=== PATIENT | female | born 1965 | race Caucasian/White ===

== ENCOUNTER 2018-03-13 06:32 | Day surgery (SDC) | END 2018-03-13 12:43 | disposition home or self-care (01) ==

== ENCOUNTER 2018-08-25 06:15 | Day surgery (SDC) | payer OTHER ==
[~2018-08-25] VITALS: Ht 162.6 cm; Wt 71.1 kg
[2018-08-25] VITALS (17 sets, daily range): BP systolic 96–121; BP diastolic 46–87; PULSE 62–84; RESP 11–22; Ht 162.6 cm; Wt 71.1 kg
--- NOTE | 2018-08-25 05:24 | PREOPHP ---
DATE OF ADMISSION: 08/25/2018 HISTORY OF PRESENT ILLNESS: This is a 53-year-old lady, 0. Her last normal menstrual period was at the age of 43. She was admitted as outpatient for D and C, hysteroscopy and suction curettag e. This patient desires to have estrogen replacement therapy. She is having a lot of hot flashes an d also has dyspareunia. Ultrasound showed endometrial thickening. Endometrial biopsy was attempted but the cervix was stenotic, so the biopsy could not be done, so she was admitted for the above proce dure. Procedure was explained to the patient and she understood everything totally. The risks, bene fits and alternatives were discussed with her as well. PAST PERSONAL HISTORY: No history of diabetes, TB, asthma. ALLERGIES: NO ALLERGIES. SOCIAL HISTORY: The patient does not smoke. She does not drink. MEDICATIONS: She does not take any drugs. GYNECOLOGIC HISTORY: She has menarche, patient does not remember and she states it is about 2 to 3 d ays' duration. She is 0. FAMILY HISTORY: Mother has high blood pressure. Brother has diabetes and has head cancer. REVIEW OF SYSTEMS: CARDIOVASCULAR: No chest pains. RESPIRATORY: No cough. GASTROINTESTINAL: No diarrhea, no vomiting. GENITOURINARY: No dysuria. PHYSICAL EXAMINATION: GENERAL: Reveals a conscious, coherent lady and in no acute distress. VITAL SIGNS: Her blood pressure 120/80, pulse rate 80 per minute, respirations 16 per minute. BREASTS, HEART AND LUNGS: Within normal limits. ABDOMEN: Soft. No organomegaly. PELVIC: Revealed a cervix to be firm, uterus of normal size and adnexa were negative for masses. RECTAL: Confirmed the pelvic findings. EXTREMITIES: No pedal edema. ADMITTING DIAGNOSES: 1. Endometrial thickening. 2. Rule out endometrial hyperplasia. 3. Menopause. The patient was planned to have the above procedure. The risks, benefits and alternatives were discu ssed with her as well. Dictated By: MARCE BRADFORD/DEBBIE Conf#: [id number] DID#: [id number]
[~2018-08-25 06:15] MED LIST: no home meds
[2018-08-25] MEDS ORDERED: ACETAMINOPHEN 500 MG TAB PO ONE (07:30)
[2018-08-25] MEDS ORDERED: LACTATED RINGER'S 1,000 ML IV SCH (07:45)
[2018-08-25] MEDS ORDERED: FENTAnyl 50 MCG/ML VIAL ONE (08:54)
[2018-08-25] MEDS ORDERED: PROPOFOL 40 ML ONE (08:54)
[2018-08-25] MEDS ORDERED: ONDANSETRON 4 MG INJ ONE (08:55)
[2018-08-25] MEDS ORDERED: FAMOTIDINE 20 MG INJ ONE (08:55)
[2018-08-25] MEDS ORDERED: METOCLOPRAMIDE 10 MG INJ ONE (09:33)
--- NOTE | 2018-08-25 09:38 | PREAC ---
Date/Time of Note Date/Time of Note DATE: 08/25/18 TIME: 09:36 Anesthesia Eval and Record Evaluation Time Pre-Procedure Interview DATE: 08/25/18 TIME: 09:36 Age 53 Sex female NPO: 8 hrs Preoperative diagnosis endometrial thickening Planned procedure D&C hysteroscopy and suction curettage Past Medical History Past Medical History: Includes GI: GERD (under control) Surgery & Anesthesia Issues No known issue Meds Anticoagulation: No Beta Rizwan within 24 hr: No Reason Beta Rizwan not given: Pt. not on B-Rizwan Discontinued Reported Medications [no home meds] No Conflict Check 03/13/18 Current Medications Lactated Ringer's 1,000 ml @ 0 mls/hr Q0M IV Last administered on 08/25/18at 07:51; Admin Dose 20 MLS/HR; Start 08/25/18 at 07:45 Meds reviewed: Yes Allergies Coded Allergies: No Known Drug Allergies (Verified Allergy, Unknown, 08/25/18) Allergies Reviewed: Yes Labs/Studies Labs Reviewed: Reviewed by anesthesiologist Blood Bank Test 08/25/18 07:40 Antibody Screen NEGATIVE Blood Type O POSITIVE test: Negative Pre-procedure Exam Last vitals Vital Signs Date Temp Pulse Resp B/P (MAP) Pulse Ox O2 O2 Flow FiO2 Time Delivery Rate 08/25/18 98.7 65 16 121/87 99 Room Air 08:14 (98) Airway: Adequate mouth opening, Adequate thyromental dist Mallampati: Mallampati II Teeth: Normal Lung: Normal Heart: Normal ASA Physical Status ASA physical status: 2 Emergency: None Planned Anesthetic General/MAC: LMA Pre-operative Attestations Prior to commencing anesthesia and surgery, the patient was re-evaluated, there was verification of: *The patient's identity *The results of appropriate recent lab work and preoperative vital signs *The above evaluation not changing prior to induction *Anesthetic plan, risk benefits, alternative and complications discussed with patient/family; questions answered; patient/family understands, accepts and wishes to proceed. SEVERO CALIXTO Aug 25, 2018 09:38
[2018-08-25] MEDS ORDERED: DESFLURANE 15 MIN ONE (09:44)
[2018-08-25] MEDS ORDERED: CEFAZOLIN 1 GM INJ ONE (09:44)
[2018-08-25] MEDS ORDERED: FENTAnyl 50 MCG/ML VIAL IV PRN ×2 (10:00)
[2018-08-25] MEDS ORDERED: ONDANSETRON 4 MG INJ IV PRN (10:00)
[2018-08-25] MEDS ORDERED: MEPERIDINE 25 MG INJ IV PRN (10:00)
[2018-08-25] MEDS ORDERED: OXYCODONE/ACETAMINOPHEN (5/325) TAB PO PRN ×2 (10:00)
[2018-08-25] MEDS ORDERED: LABETALOL HCL 20MG INJ IV PRN (10:00)
[2018-08-25] MEDS ORDERED: morphine 2 MG INJ IV PRN ×2 (10:00)
[2018-08-25] MEDS ORDERED: ALBUTEROL 0.083% (NEB) 2.5 MG/3 ML AMP HHN PRN (10:00)
[2018-08-25] MEDS ORDERED: HYDROmorphONE 1 MG/5 ML IV SYRINGE IV PRN ×3 (10:00)
[2018-08-25] MEDS ORDERED: DIPHENHYDRAMINE 50 MG INJ IV PRN (10:00)
--- NOTE | 2018-08-25 11:12 | SIPON ---
Date/Time of Note Date/Time of Note DATE: 08/25/18 TIME: 11:10 Operative Report Preoperative Diagnosis ENDOMETRIAL THICKENING MENOPAUSE R/O ENDOMETRIAL HYPERPLASIA Postoperative Diagnosis ENDOMETRIAL THICKENING MENOPAUSE R/O ENDOMETRIAL HYPERPLASIA PENDING PATHOLOGY Operation/Procedure Performed D&C HYSTEROSCOPY SUCTION CURETTAGE Surgeon see signature line assistant brand manager STUNT MAN Anesthesia: general Estimated blood loss: minimal Transfusion Required none Specimen ECC EMC SUCTION CURETTAGE Grafts/Implants none Complications none MARCE VILLEGAS MD Aug 25, 2018 11:12
[2018-08-25] MEDS ORDERED: ACETAMINOPHEN 325 MG TAB PO PRN (11:30)
--- NOTE | 2018-08-25 12:05 | PAC ---
Date/Time of Note Date/Time of Note DATE: 08/25/18 TIME: 12:03 Post-Anesthesia Notes Post-Anesthesia Note Last documented vital signs Vital Signs Date Temp Pulse Resp B/P (MAP) Pulse Ox O2 O2 Flow FiO2 Time Delivery Rate 08/25/18 66 17 112/69 95 Room Air 11:37 (83) 08/25/18 98.7 98.7 70 16 96/46 98 face 10:22 101 mask 8L 8 Activity: WNL Respiratory function: WNL Cardiovascular function: WNL Mental status: Baseline Pain reasonably controlled: Yes Hydration appropriate: Yes Nausea/Vomiting absent: Yes SEVERO CALIXTO Aug 25, 2018 12:05
--- NOTE | 2018-08-25 14:29 | OPR ---
DATE OF OPERATION: 08/25/2018 PREOPERATIVE DIAGNOSES: 1. Endometrial thickening. 2. Menopause. 3. Rule out endometrial hyperplasia. POSTOPERATIVE DIAGNOSES: 1. Endometrial thickening. 2. Menopause. 3. Rule out endometrial hyperplasia. 4. Pending pathology report. SURGEON: Marce Matamoros MD SERVICE CAR OPERATOR: Kaveh beck. ANESTHESIA: General. ANESTHESIOLOGIST: Mary Lou Gallardo NP OPERATION PERFORMED: Fractional dilatation and curettage, hysteroscopy and suction curettage. OPERATIVE TECHNIQUE: Under general anesthesia, the patient was prepped and draped in the usual [facility] on for vaginal surgery. Pelvic exam under anesthesia revealed the cervix to be firm, uterus of marce l size and adnexa were negative for masses. Then, the heavy weight vaginal retractor was put in plac e and the anterior lip of the cervix was grasped with an Allis clamp. Endocervical dilatation up to Hegar 6 was proceeded. Uterus was sounded to about 2-1/2 inches. The hysteroscope was inserted insi de the uterine cavity and connected with a light source. The uterus was distended with normal saline . There were no polyps nor fibroids seen. Endocervical curettage was done and small amount of tissu e was obtained. Endometrial curettage was done and small amount of tissue was obtained. Suction tip size 6 was inserted inside the uterine cavity and connected with the suction machine. Suction curet tage was done and a small amount of tissue was obtained. The uterus was intact during and after the procedure. The patient tolerated the procedure well. Estimated blood loss was minimal. Vital signs were stable during and after the procedure. Dictated By: MARCE BRADFORD/DEBBIE Conf#: [id number] DID#: [id number]
== END 2018-08-25 13:30 | disposition home or self-care (01) ==
LOC: SDS 06:15
PROVIDERS: ATTEND Obstetrics & Gynecology
DX: R93.89 Abnormal findings on diagnostic imaging of other specified body structures (principal); Z78.0 Asymptomatic menopausal state
CPT/HCPCS: 58558; 84702; 86850; 86900; 86901; 88305; J0690; J2405; J2765; J3010; Z7512; Z7610